=== PATIENT | female | born 1940 | race Two or more races ===

== ENCOUNTER 2017-04-07 01:00 | Inpatient (IN) | payer MEDICARE, OTHER ==
[~2017-04-07] VITALS: Ht 157.5 cm; Wt 61.2 kg
--- NOTE | 2017-04-07 01:10 | NUR ---
ADMITTED AN 77 Y/O FEMALE FROM [facility] EMERGENCY RECORD , ON 5150 HOLD GD, PER HOLD PATIENT IS HIGHLY AGITATED, DELUSIONAL, COMBATIVE, REFUSED FOOD, WATER AND MEDICATION. PATIENT ADMITTING DX. PSYCHOSIS AND MEDICAL DX. OF HYPERTENSION AND UTI. UPON FACE TO FACE EVALUATION, PATIENT IS AGITATED, COMBATIVE, POOR HISTORIAN, CONFUSED, DISORGANIZED, DELUSIONAL, PARANOID, POOR INSIGHT AND JUDGEMENT AND REDIRECTABLE. NO SOB, NO ACUTE DISTRESS, BREATHING EVEN AND UNLABORED, NO S/S OF PAIN AND DISCOMFORT, SKIN TO TOE ASSESSMENT DONE. PICTURES DONE. BELONGINGS AND CONTRABAND INSPECTED AND PLACED ON SAFE. NOTIFIED DR. ADKINS. KEPT CLEAN, DRY AND COMFORTABLE, WILL CONTINUE TO MONITOR [id number] FOR SAFETY
[2017-04-07] MEDS ORDERED: MAGNESIUM HYDROXIDE 30 ML UDC PO PRN (01:30)
[2017-04-07] MEDS ORDERED: clonazePAM 0.5 MG TABLET PO PRN (01:30)
[2017-04-07] MEDS ORDERED: MAG HYDROX/AL HYDROX/SIMETH 30 ML UDC PO PRN (01:30)
[2017-04-07] MEDS ORDERED: ACETAMINOPHEN 325 MG TABLET PO PRN (01:30)
[2017-04-07] MEDS ORDERED: TEMAZEPAM 7.5 MG CAPSULE PO PRN (01:30)
[2017-04-07 03:29] VITALS: BP 123/76
--- NOTE | 2017-04-07 05:00 | NUR ---
GPS RN NOTE: NOTIFIED GUANAKITO ALEJANDRA(DAUGHTER) OF THE ADMISSION OF HER MOTHER
[2017-04-07] MEDS ORDERED: BENA10TA2 (05:56)
[2017-04-07] MEDS ORDERED: FLUT1DIS27 (05:56)
[2017-04-07] MEDS ORDERED: ALBU2.5V38 (05:56)
[2017-04-07] MEDS ORDERED: TIOT18CA3 PO (05:56)
[2017-04-07] MEDS ORDERED: NA P133E RC (05:56)
[2017-04-07] MEDS ORDERED: BISA10SU8 RC (05:56)
[2017-04-07] MEDS ORDERED: DOCU-25 PO (05:56)
[2017-04-07] MEDS ORDERED: MULT1CAP34 PO (05:56)
[2017-04-07] MEDS ORDERED: FURO40TA5 PO (05:56)
[2017-04-07] MEDS ORDERED: TRAZ-147 PO (05:56)
[2017-04-07] MEDS ORDERED: HALO2ORA IJ (05:56)
[2017-04-07] MEDS ORDERED: DIVA500T54 (05:56)
[2017-04-07] MEDS ORDERED: LOPE2CAP40 PO (05:56)
[2017-04-07] MEDS ORDERED: CARV6.252 (05:56)
[2017-04-07] MEDS ORDERED: ATOR20TA PO (05:56)
[2017-04-07] MEDS ORDERED: FLUT9.9S NS (05:56)
[2017-04-07] MEDS ORDERED: POTA-10 PO (05:56)
[2017-04-07] MEDS ORDERED: CALC500T3 PO (05:57)
[2017-04-07] MEDS ORDERED: CALC1POW MC (05:57)
[2017-04-07] MEDS ORDERED: CALC-1152 PO (05:59)
[2017-04-07] MEDS ORDERED: CEPH-570 PO (06:10)
[2017-04-07 08:00] VITALS: BP 134/76
--- NOTE | 2017-04-07 09:22 | NUR ---
WOUND CARE CONSULT: PT PRESENTS WITH LESION TO MIDBACK PRESENT ON ADMISSION. RECOMMEND SURGICAL CONSULT. AREA BLEEDS EASILY. RECOMMENDATIONS MADE FOR SKIN PROTECTION. DISCUSSED WITH NURSING STAFF. WILL SEE PRN. NEWELL IN AGREEMENT WITH PLAN OF CARE. Addendum: 04/07/17 at 0924 by GUANAKITO BENNETT WNDNU Amended: Links added.
[2017-04-07] MEDS ORDERED: Z GUARD REMEDY 2 OZ OINT TP PRN (09:30)
[2017-04-07] MEDS: Z GUARD REMEDY 2 OZ OINT TP SCH (09:52)
[2017-04-07 12:13] LABS: CHOLESTEROL 176 mg/dL (<200); HDL CHOLESTEROL 40 mg/dL (40-60); LDL 114 mg/dL (0-99); TRIGLYCERIDES 105 mg/dL (30-150)
[2017-04-07 12:14] LABS: ALANINE AMINOTRANSFERASE 19 U/L (12-78); ALBUMIN 3.1 g/dL (3.4-5.0); ALKALINE PHOSPHATASE 83 U/L (46-116); ASPARTATE AMINOTRANSFERASE 20 U/L (15-37); BILIRUBIN,TOTAL 0.6 mg/dL (0.2-1.0); CARBON DIOXIDE 26 mmol/L (21-32); CHLORIDE 109 mmol/L (98-107); CREATININE 0.6 mg/dL (0.6-1.3); GLUCOSE 100 mg/dL (74-106); POTASSIUM 3.6 mmol/L (3.5-5.1); SODIUM SERUM 144 mmol/L (136-145); TOTAL PROTEIN, SERUM 6.8 g/dL (6.4-8.2); UREA NITROGEN, BLOOD 16 mg/dL (7-18)
--- NOTE | 2017-04-07 12:25 | NUR ---
RN NOTE :RAMIREZ CREW LEADER/CONTROL ROOM OPERATOR NOTIFIED ABOUT NEW ADMIT AND MED RECONCILIATION .
--- NOTE | 2017-04-07 12:25 | NUR ---
RN-CO: Notified Yonny Amezcua NP to reconcile home medications.
[2017-04-07 16:00] VITALS: BP 141/90
--- NOTE | 2017-04-07 16:14 | NUR ---
initial assessment/discharge planning: Pt resided at [facility] at [address] [place] [address] . home support worker contacted facility,facility is awaiting progress report. Facility is noncommittal at this time, pt may need placement.
[2017-04-07] MEDS: DIVALPROEX SODIUM 125 MG CAP.SPRINK PO SCH ×2 (17:00→17:29)
--- NOTE | 2017-04-07 17:00 | NUR ---
RN NOTE :PATIENT SEEN BY RAMIREZ AND STATED HE WILL DO MED RECONCILIATION.
--- NOTE | 2017-04-07 19:30 | NUR ---
GPS RN NOTE, RECEIVED PATIENT AWAKE AND IN GERIATRIC CHAIR WITH NO TRAY , NO S/S OR COMPLAINTS OF PAIN AT THIS TIME. PATIENT IS DISPLAYING NO S/S OF APPARENT DISTRESS AT THIS TIME. PATIENT BREATHING IS UNLABORED WITH EQUAL RISE AND FALL OF THE CHEST. PATIENT IS ALERT AND ORIENTED X 1 ON ROOM AIR WITH A SPO2 98%. PATIENT REFUSING MEDICATION, ANXIOUS, CONFUSED, DISORGANIZED, COMBATIVE AT TIMES, VERBALLY ABUSIVE, AND NEEDS REORIENTATION. PATIENT DENIES SUICIDE AND HOMICIDAL IDEATIONS AT THIS TIME. PATIENT ASSISTED WITH TURNING AND REPOSITIONING Q2HR AND PRN FOR COMFORT AND CIRCULATION. PATIENT HAS NO NEEDS AT THIS TIME. PATIENT EDUCATED ON THE USE OF THE CALL FOLEY. PATIENT BED SIDE RAILS UP X2 FOR SAFETY, BED IS LOCKED AND LOW WILL CONTINUE TO MONITOR AND MAINTAIN SAFETY.
[2017-04-07] MEDS ORDERED: CALCIUM CARBONATE 500 MG TAB.CHEW PO PRN (20:00)
[2017-04-07] MEDS ORDERED: BISACODYL SUPP (10 MG) 10 MG/SUPP.RECT SUPP.RECT RC PRN (20:00)
[2017-04-07] MEDS ORDERED: ALBUTEROL FS 2.5 MG/3 ML VIAL.NEB INH PRN (20:00)
[2017-04-07] MEDS ORDERED: CALCIUM CARBONATE (1250) 500 MG TABLET PO PRN (20:00)
[2017-04-07] MEDS: ATORVASTATIN 10 MG TABLET PO SCH (22:00)
[2017-04-07] MEDS: OLANZAPINE 5 MG/TAB.RAPDIS PO SCH (22:00)
--- NOTE | 2017-04-07 22:16 | NUR ---
GPS RN NOTE, PATIENT REFUSED TO TAKE LIPITOR 20MG PO HS AND ZYPREXA 5MG PO HS. OFFERED LIPITOR AND ZYPREXA THREE TIMES AND STILL REFUSED STATING, " I WOULD NOT TAKE A PILL FROM YOU IF YOU WERE THE LAST PERSON ON EARTH ". EDUCATED THE PATIENT ON THE RISKS AND BENEFITS OF TAKING AND REFUSING AFOREMENTIONED MEDICATION. WILL CONTINUE TO MONITOR THIS PATIENT CLOSELY.
[2017-04-08] MEDS ORDERED: IPRATROPIUM NEB FS 0.5 MG/2.5 ML AMPUL.NEB NEB SCH (01:30)
[2017-04-08] MEDS ORDERED: IPRATROPIUM NEB FS 0.5 MG/2.5 ML AMPUL.NEB NEB PRN (03:00)
[2017-04-08 08:00] VITALS: BP 135/70
[2017-04-08] MEDS: CALCIUM CARB 600MG /VIT D 1 EACH TABLET PO SCH (09:00)
[2017-04-08] MEDS: POTASSIUM CHLORIDE 10 MEQ TABLET.SA PO SCH (09:00)
[2017-04-08] MEDS: DIVALPROEX SODIUM 125 MG CAP.SPRINK PO SCH ×2 (09:00→21:00)
[2017-04-08] MEDS: FLUTICASONE/VILANTEROL 1 EACH BLST.W.DEV IH SCH (09:00)
[2017-04-08] MEDS: MULTIVITAMINS,THERAGRAN 1 UDTAB TABLET PO SCH (09:00)
[2017-04-08] MEDS: CARVEDILOL 6.25 MG TABLET PO SCH ×2 (09:00→17:00)
[2017-04-08] MEDS: DOCUSATE SODIUM 100 MG CAPSULE PO SCH (09:00)
[2017-04-08] MEDS: FUROSEMIDE 40 MG TABLET PO SCH (09:00)
[2017-04-08] MEDS ORDERED: DIVALPROEX SODIUM 500 MG TABLET.DR PO SCH (09:00)
[2017-04-08] MEDS: BENAZEPRIL HCL 10 MG TABLET PO SCH ×2 (09:00→17:00)
[2017-04-08] MEDS: Z GUARD REMEDY 2 OZ OINT TP SCH (10:07)
[2017-04-08 16:00] VITALS: BP 128/70
[2017-04-08 20:00] VITALS: BP 134/85
--- NOTE | 2017-04-08 21:35 | NUR ---
PATIENT REFUSED TO TAKE SCHEDULED MEDS. OFFERED 3X. PT STILL REFUSED. EDUCATED THE PATIENT ON THE RISKS AND BENEFITS OF NOT TAKING IT. WILL CONTINUE TO MONITOR.
[2017-04-08] MEDS: ATORVASTATIN 10 MG TABLET PO SCH (21:47)
[2017-04-08] MEDS: OLANZAPINE 5 MG/TAB.RAPDIS PO SCH (21:48)
--- NOTE | 2017-04-09 07:30 | NUR ---
GPS RN: RECEIVED PATIENT IN BED SLEEPING, NO S/S OF ACUTE DISTRESS, RESPIRATION EVEN AND UNLABORED, SKIN WARM TO TOUCH. PATIENT NOTED WITH LEFT JAIME SKIN TEAR. CLEANSED WITH NS CLEAN DRESSING APPLIED. WILL TAKE A PICTURE AND ORDER WOUND CONSULT.
[2017-04-09 08:00] VITALS: BP 156/90
[2017-04-09] MEDS: BENAZEPRIL HCL 10 MG TABLET PO SCH ×2 (11:07→16:38)
[2017-04-09] MEDS: DIVALPROEX SODIUM 125 MG CAP.SPRINK PO SCH ×2 (11:07→21:30)
[2017-04-09] MEDS: POTASSIUM CHLORIDE 10 MEQ TABLET.SA PO SCH (11:08)
[2017-04-09] MEDS: FUROSEMIDE 40 MG TABLET PO SCH (11:08)
[2017-04-09] MEDS: CARVEDILOL 6.25 MG TABLET PO SCH ×2 (11:08→16:38)
[2017-04-09] MEDS: CALCIUM CARB 600MG /VIT D 1 EACH TABLET PO SCH (11:13)
[2017-04-09] MEDS: MULTIVITAMINS,THERAGRAN 1 UDTAB TABLET PO SCH (11:13)
[2017-04-09] MEDS: DOCUSATE SODIUM 100 MG CAPSULE PO SCH (11:13)
[2017-04-09] MEDS: FLUTICASONE/VILANTEROL 1 EACH BLST.W.DEV IH SCH (11:22)
[2017-04-09] MEDS: Z GUARD REMEDY 2 OZ OINT TP SCH (11:23)
--- NOTE | 2017-04-09 11:38 | NUR ---
GPS RN: PATIENT IS SEEN BY THE INSIDE SALES ADVERTISING EXECUTIVE, DR. DE LOS SANTOS WITH NEW ORDER, CLEAN THE LEFT JAIME WITH NS, PAT DRY, APPLY TRIPLE ATB OINTMENT AND COVER WITH MEPILEX DAILY. PICTURES TAKEN AND DOCUMENTED IN THE CHART.
[2017-04-09] MEDS: NEOMY SULF/BACITRAC ZN/POLY 15 GM TUBE TP SCH (15:11)
[2017-04-09 16:00] VITALS: BP 128/74
[2017-04-09] MEDS ORDERED: BOOST PLUS FOOD-VANILLA 237 ML BOX PO SCH (17:00)
[2017-04-09] MEDS ORDERED: OLANZAPINE 2.5 MG TABLET PO PRN (18:00)
--- NOTE | 2017-04-09 18:30 | NUR ---
RN-CO: Patient is disrobing, showing her private part to staff. keep on removing her gown and non redirectable. Saying profanities and verbally abusive.
[2017-04-09] MEDS: BOOST PLUS FOOD-CHOCLATE 237 ML BOX PO SCH (18:42)
[2017-04-09 20:00] VITALS: BP_SYST 120; BP_SYST 142; BP_DIAS 58; BP_DIAS 75
[2017-04-09] MEDS: ATORVASTATIN 10 MG TABLET PO SCH (21:28)
[2017-04-09] MEDS: OLANZAPINE 5 MG/TAB.RAPDIS PO SCH (21:30)
--- NOTE | 2017-04-10 07:18 | NUR ---
RN GPS NOTES PATIENT RESTING HER BED, NO ACUTE DISTRESS NOTED ,NO CHANGES IN STATUS. ALL NEEDS ATTENDED ANTICIPATED . REMANIED , PT. COMPLY WITH DUE MEDS , PT.CHIN AND RIGHT HAND AND RIGHT ARM BRUSIES NOTED PICTURE TAKEN , PLACED IN THE CHART ,WILL ENDORSE TO NEXT SHIFT FOR CONTINUITY CARE
[2017-04-10 08:00] VITALS: BP 134/78
[2017-04-10] MEDS: BOOST PLUS FOOD-CHOCLATE 237 ML BOX PO SCH ×2 (08:00→17:00)
[2017-04-10] MEDS: FLUTICASONE/VILANTEROL 1 EACH BLST.W.DEV IH SCH (09:00)
[2017-04-10] MEDS: DIVALPROEX SODIUM 125 MG CAP.SPRINK PO SCH ×2 (09:00→21:00)
[2017-04-10] MEDS: POTASSIUM CHLORIDE 10 MEQ TABLET.SA PO SCH (09:00)
[2017-04-10] MEDS: CALCIUM CARB 600MG /VIT D 1 EACH TABLET PO SCH (09:00)
[2017-04-10] MEDS: CARVEDILOL 6.25 MG TABLET PO SCH ×2 (09:00→17:00)
[2017-04-10] MEDS: FUROSEMIDE 40 MG TABLET PO SCH (09:00)
[2017-04-10] MEDS: MULTIVITAMINS,THERAGRAN 1 UDTAB TABLET PO SCH (09:00)
[2017-04-10] MEDS: BENAZEPRIL HCL 10 MG TABLET PO SCH ×2 (09:00→17:00)
[2017-04-10] MEDS: DOCUSATE SODIUM 100 MG CAPSULE PO SCH (09:00)
[2017-04-10] MEDS: NEOMY SULF/BACITRAC ZN/POLY 15 GM TUBE TP SCH (10:43)
[2017-04-10] MEDS: Z GUARD REMEDY 2 OZ OINT TP SCH (10:43)
--- NOTE | 2017-04-10 11:00 | NUR ---
GPS RN: PATIENT IS AGGRESSIVE, COMBATIVE, REFUSING MEDICATION AND SPITTING AT STAFF MEMBERS, THROWING PILLOWS, AND DISROBING. REDIRECTED THE PATIENT AND PROVIDED WITH CALM AND SAFE ENVIRONMENT. PATIENT'S VS ARE STABLE AT THIS TIME, NO S/S OF ACUTE DISTRESS. CONTINUE TO MONITOR.
[2017-04-10 15:53] VITALS: BP 138/74
--- NOTE | 2017-04-10 17:09 | NUR ---
GPS RN: PATIENT REFUSED 1700 MEDICATIONS. VERBALLY ABUSIVE AND SPITTING AT STAFF. PATIENT IS LYING IN BED, NO SS OF ACUTE DISTRESS, VS STABLE, CONTINUE TO MONITOR THE PATIENT.
--- NOTE | 2017-04-10 18:52 | NUR ---
GPS RN: PATIENT DISPLAYS AGGRESSIVE BEHAVIOR, HITTING AND SPITTING AT STAFF WHEN OFFERED FOOD OR FLUIDS. SHE IS VERY CONFUSED AND DELUSIONAL, UNABLE TO REDIRECT. VS STABLE, NO S/S OF ACUTE DISTRESS, CONTINUE TO MONITOR THE PATIENT.
[2017-04-10 20:00] VITALS: BP 165/87
[2017-04-10] MEDS: ATORVASTATIN 10 MG TABLET PO SCH (21:32)
[2017-04-10] MEDS: OLANZAPINE 5 MG/TAB.RAPDIS PO SCH (21:32)
--- NOTE | 2017-04-11 01:25 | NUR ---
Pt has been verbally abusive, refusing meds, quite fragmented at times, disheveled, aggressive mostly, & very easily agitated on approach.
[2017-04-11] MEDS: BOOST PLUS FOOD-CHOCLATE 237 ML BOX PO SCH ×2 (08:00→17:00)
[2017-04-11 08:19] VITALS: BP 148/64
[2017-04-11] MEDS: CALCIUM CARB 600MG /VIT D 1 EACH TABLET PO SCH (09:00)
[2017-04-11] MEDS: OLANZAPINE 5 MG/TAB.RAPDIS PO SCH ×2 (09:00→21:42)
[2017-04-11] MEDS: NEOMY SULF/BACITRAC ZN/POLY 15 GM TUBE TP SCH (09:00)
[2017-04-11] MEDS: FLUTICASONE/VILANTEROL 1 EACH BLST.W.DEV IH SCH (09:00)
[2017-04-11] MEDS: POTASSIUM CHLORIDE 10 MEQ TABLET.SA PO SCH (09:00)
[2017-04-11] MEDS: CARVEDILOL 6.25 MG TABLET PO SCH ×2 (09:00→17:00)
[2017-04-11] MEDS: FUROSEMIDE 40 MG TABLET PO SCH (09:00)
[2017-04-11] MEDS: MULTIVITAMINS,THERAGRAN 1 UDTAB TABLET PO SCH (09:00)
[2017-04-11] MEDS: BENAZEPRIL HCL 10 MG TABLET PO SCH ×2 (09:00→17:00)
[2017-04-11] MEDS: DOCUSATE SODIUM 100 MG CAPSULE PO SCH (09:00)
[2017-04-11] MEDS: DIVALPROEX SODIUM 125 MG CAP.SPRINK PO SCH ×2 (09:00→21:00)
[2017-04-11] MEDS: Z GUARD REMEDY 2 OZ OINT TP SCH (09:17)
--- NOTE | 2017-04-11 13:51 | NUR ---
PT. REFUSING FOR CT HEAD PER RN (AMOS).
[2017-04-11 16:00] VITALS: BP 151/86
--- NOTE | 2017-04-11 18:17 | NUR ---
GPS RN NOTES/ PATIENT DELUSIONAL, REFUSED MEDICATION, POOR EAT, OFFERED FLUIDS TOLERATED, PATIENT TURN AND REPOSITION SELF IN THE BED, 1;1 SITTER NEXT TO THE BED FOR SAFETY. ENDORSED ONCOMING NURSE FOR CONTINUATION OF CARE.
[2017-04-11 19:43] VITALS: BP 159/75
[2017-04-11] MEDS: ATORVASTATIN 10 MG TABLET PO SCH (21:42)
[2017-04-12 08:00] VITALS: BP 161/87
[2017-04-12] MEDS: BOOST PLUS FOOD-CHOCLATE 237 ML BOX PO SCH ×2 (08:00→16:54)
[2017-04-12] MEDS: DOCUSATE SODIUM 100 MG CAPSULE PO SCH (08:48)
[2017-04-12] MEDS: CARVEDILOL 6.25 MG TABLET PO SCH ×2 (08:48→16:54)
[2017-04-12] MEDS: CALCIUM CARB 600MG /VIT D 1 EACH TABLET PO SCH (08:48)
[2017-04-12] MEDS: FLUTICASONE/VILANTEROL 1 EACH BLST.W.DEV IH SCH (08:48)
[2017-04-12] MEDS: FUROSEMIDE 40 MG TABLET PO SCH (08:49)
[2017-04-12] MEDS: DIVALPROEX SODIUM 125 MG CAP.SPRINK PO SCH ×2 (08:49→21:44)
[2017-04-12] MEDS: POTASSIUM CHLORIDE 10 MEQ TABLET.SA PO SCH (08:49)
[2017-04-12] MEDS: MULTIVITAMINS,THERAGRAN 1 UDTAB TABLET PO SCH (08:50)
[2017-04-12] MEDS: OLANZAPINE 5 MG/TAB.RAPDIS PO SCH ×2 (08:50→21:44)
[2017-04-12] MEDS: BENAZEPRIL HCL 10 MG TABLET PO SCH ×2 (08:50→16:59)
[2017-04-12] MEDS: NEOMY SULF/BACITRAC ZN/POLY 15 GM TUBE TP SCH (08:50)
[2017-04-12] MEDS: Z GUARD REMEDY 2 OZ OINT TP SCH (08:51)
--- NOTE | 2017-04-12 11:35 | NUR ---
EVITA spoke with pt's daughter Lou at [phone]. Lou was aware that her mother was not compliant with medication and that a Riese hearing will be scheduled. Lou expressed that the family would like for pt to return to [address] [address] if possible once pt is stable. Lou stated that if it was not possible for pt to return to [facility], then placement in the [facility] with hospice care would be preferable. EVITA will follow up with MDs and will touch base with Lou when possible.
[2017-04-12 16:00] VITALS: BP 153/87
[2017-04-12 17:34] VITALS: BP 135/80
[2017-04-12 20:27] VITALS: BP 113/66
[2017-04-12] MEDS: ATORVASTATIN 10 MG TABLET PO SCH (21:44)
[2017-04-13 08:00] VITALS: BP 121/81
[2017-04-13] MEDS: BOOST PLUS FOOD-CHOCLATE 237 ML BOX PO SCH ×2 (08:00→16:28)
[2017-04-13] MEDS: CALCIUM CARB 600MG /VIT D 1 EACH TABLET PO SCH (08:45)
[2017-04-13] MEDS: DOCUSATE SODIUM 100 MG CAPSULE PO SCH (08:45)
[2017-04-13] MEDS: CARVEDILOL 6.25 MG TABLET PO SCH ×2 (08:45→16:28)
[2017-04-13] MEDS: BENAZEPRIL HCL 10 MG TABLET PO SCH ×2 (08:46→16:29)
[2017-04-13] MEDS: FUROSEMIDE 40 MG TABLET PO SCH (08:46)
[2017-04-13] MEDS: POTASSIUM CHLORIDE 10 MEQ TABLET.SA PO SCH (08:46)
[2017-04-13] MEDS: MULTIVITAMINS,THERAGRAN 1 UDTAB TABLET PO SCH (08:47)
[2017-04-13] MEDS: OLANZAPINE 5 MG/TAB.RAPDIS PO SCH ×3 (08:47→22:00)
[2017-04-13] MEDS: NEOMY SULF/BACITRAC ZN/POLY 15 GM TUBE TP SCH (08:48)
[2017-04-13] MEDS: DIVALPROEX SODIUM 125 MG CAP.SPRINK PO SCH ×3 (08:48→21:19)
[2017-04-13] MEDS: Z GUARD REMEDY 2 OZ OINT TP SCH (08:48)
--- NOTE | 2017-04-13 08:49 | NUR ---
[id number]: PT REFUSED ALL MORNING MEDICATIONS. WILL NOTIFY PSYCHIATRIST AND MEDICAL WATER RIGHTS SPECIALIST.
[2017-04-13] MEDS: FLUTICASONE/VILANTEROL 1 EACH BLST.W.DEV IH SCH (09:00)
--- NOTE | 2017-04-13 12:27 | NUR ---
EVITA called [facility] [address] [place] [address]; and spoke with Inan who took a message for Blanca in admissions. EVITA was following up and inquiring if the facility would be able to take pt back once pt is stabilized and ready for discharge. EVITA will wait to hear back from Blanca and will follow up with placement for pt.
--- NOTE | 2017-04-13 15:34 | NUR ---
Blanca from Admissions from [facility]; [address] [place] [address]; called and stated that, legally, the facility has to accept pt back. Blanca expressed concern that the pt might need more care than the facility can provide. Blanca said that if a doctor decides to send the pt to another facility, then the doctor can issue a note stating that another facility is better suited. EVITA will follow up with psychiatrist.
[2017-04-13 16:03] VITALS: BP 133/84
[2017-04-13 20:31] VITALS: BP 148/74
[2017-04-13] MEDS: ATORVASTATIN 10 MG TABLET PO SCH ×2 (21:19→22:00)
--- NOTE | 2017-04-13 21:27 | NUR ---
GPS/RN NOTE: PATIENT REFUSED HER NIGHT MEDS, CONFUSED, NOT FOLLOWING INSTRUCTIONS. STATED," GO TO THE [facility]." EXPLAINED 3X BUT NOT UNDERSTANDING.
[2017-04-14] MEDS: BOOST PLUS FOOD-CHOCLATE 237 ML BOX PO SCH ×2 (08:00→17:00)
[2017-04-14 08:15] VITALS: BP 145/79
[2017-04-14] MEDS: DIVALPROEX SODIUM 125 MG CAP.SPRINK PO SCH ×2 (09:00→21:00)
[2017-04-14] MEDS: POTASSIUM CHLORIDE 10 MEQ TABLET.SA PO SCH (09:00)
[2017-04-14] MEDS: NEOMY SULF/BACITRAC ZN/POLY 15 GM TUBE TP SCH (09:00)
[2017-04-14] MEDS: CALCIUM CARB 600MG /VIT D 1 EACH TABLET PO SCH (09:00)
[2017-04-14] MEDS: CARVEDILOL 6.25 MG TABLET PO SCH ×2 (09:00→17:00)
[2017-04-14] MEDS: FLUTICASONE/VILANTEROL 1 EACH BLST.W.DEV IH SCH (09:00)
[2017-04-14] MEDS: MULTIVITAMINS,THERAGRAN 1 UDTAB TABLET PO SCH (09:00)
[2017-04-14] MEDS: FUROSEMIDE 40 MG TABLET PO SCH (09:00)
[2017-04-14] MEDS: DOCUSATE SODIUM 100 MG CAPSULE PO SCH (09:00)
[2017-04-14] MEDS: BENAZEPRIL HCL 10 MG TABLET PO SCH ×2 (09:00→17:00)
[2017-04-14] MEDS: Z GUARD REMEDY 2 OZ OINT TP SCH (09:00)
[2017-04-14] MEDS: OLANZAPINE 5 MG/TAB.RAPDIS PO SCH ×2 (09:00→21:04)
--- NOTE | 2017-04-14 10:00 | NUR ---
RN-CO: CASSY ANGULO SEC. INFORMED COURT THAT DR HEDRICK AVAILABLE BET 10:30 AM - 11:00 FOR THE PT'S RIESED HEARING.
--- NOTE | 2017-04-14 11:44 | NUR ---
Group Note S: Pt stated "I don't have any questions...I want to stand here..." O: Pt appeared to be withdrawn. Pt's motor activity was calm. Pt appeared timid. A: Pt seems to have made progress in regards to controlling her impulsive and volatile behavior. P: SW will follow up with pt's progress and will continue to work on safe and proper discharge. Addendum: 04/26/17 at 1049 by GRADY JAMA This was patient Dae Sewell, not Elizabeth Dae.
--- NOTE | 2017-04-14 14:56 | NUR ---
PT REFUSING THE CT BRAIN. RN IN CHARGE KNOWS ABOUT IT. TRY IT TOMORROW.
[2017-04-14 16:15] VITALS: BP 147/85
[2017-04-14 20:00] VITALS: BP 128/73
[2017-04-14 20:16] VITALS: BP 128/73
[2017-04-14] MEDS: ATORVASTATIN 10 MG TABLET PO SCH (21:04)
--- NOTE | 2017-04-14 21:06 | NUR ---
GPS/MARKET RESEARCH ASSISTANT NOTES: PT. REFUSED ALL HS MEDS. OFFERED 3X. EXPLAINED RISK AND BENEFITS. PT. STILL REFUSED.
[2017-04-15 08:00] VITALS: BP 130/75
[2017-04-15] MEDS: BOOST PLUS FOOD-CHOCLATE 237 ML BOX PO SCH ×2 (08:00→16:43)
[2017-04-15] MEDS: NEOMY SULF/BACITRAC ZN/POLY 15 GM TUBE TP SCH (09:00)
[2017-04-15] MEDS: CALCIUM CARB 600MG /VIT D 1 EACH TABLET PO SCH (09:00)
[2017-04-15] MEDS: MULTIVITAMINS,THERAGRAN 1 UDTAB TABLET PO SCH (09:00)
[2017-04-15] MEDS: Z GUARD REMEDY 2 OZ OINT TP SCH (09:00)
[2017-04-15] MEDS: BENAZEPRIL HCL 10 MG TABLET PO SCH ×2 (09:00→16:47)
[2017-04-15] MEDS: FUROSEMIDE 40 MG TABLET PO SCH (09:00)
[2017-04-15] MEDS: CARVEDILOL 6.25 MG TABLET PO SCH ×2 (09:00→16:46)
[2017-04-15] MEDS: POTASSIUM CHLORIDE 10 MEQ TABLET.SA PO SCH (09:00)
[2017-04-15] MEDS: OLANZAPINE 5 MG/TAB.RAPDIS PO SCH ×2 (09:00→21:00)
[2017-04-15] MEDS: FLUTICASONE/VILANTEROL 1 EACH BLST.W.DEV IH SCH (09:00)
[2017-04-15] MEDS: DOCUSATE SODIUM 100 MG CAPSULE PO SCH (09:00)
[2017-04-15] MEDS: DIVALPROEX SODIUM 125 MG CAP.SPRINK PO SCH ×2 (09:00→21:00)
[2017-04-15] MEDS: OLANZAPINE 10 MG VIAL IM PRN ×2 (14:13→21:45)
[2017-04-15 16:00] VITALS: BP 120/78
--- NOTE | 2017-04-15 18:33 | NUR ---
RN NOTES PT STILL AGITATED AND COMBATIVE , ONLY LIKES HER BOOST TO DRINK , REFUSED 1700 MEDS, REORIENTED TO ROOM AND ENVIRONMENT , WILL ENDORSE TO PLASTIC SHEETING CUTTER NURSE FOR SANTIAGO .
[2017-04-15 20:00] VITALS: BP 140/80
[2017-04-15 20:01] VITALS: BP 140/80
[2017-04-15] MEDS: ATORVASTATIN 10 MG TABLET PO SCH (21:42)
--- NOTE | 2017-04-15 21:56 | NUR ---
gps/senior estimator notes: pt. refused all hs meds including olanzapine 2.5mg po as ordered. offered 3x. explained risk and benefits. pt. still refused. pt. on RIESE, olanzapine 2.5mg IM given as ordered per olanzapine 2.5mg po refusal.
[2017-04-16 08:30] VITALS: BP 151/74
[2017-04-16] MEDS: BOOST PLUS FOOD-CHOCLATE 237 ML BOX PO SCH ×2 (08:30→17:27)
[2017-04-16] MEDS: FUROSEMIDE 40 MG TABLET PO SCH (09:00)
[2017-04-16] MEDS: FLUTICASONE/VILANTEROL 1 EACH BLST.W.DEV IH SCH (09:00)
[2017-04-16] MEDS: NEOMY SULF/BACITRAC ZN/POLY 15 GM TUBE TP SCH (09:00)
[2017-04-16] MEDS: CARVEDILOL 6.25 MG TABLET PO SCH ×2 (09:00→17:00)
[2017-04-16] MEDS: DIVALPROEX SODIUM 125 MG CAP.SPRINK PO SCH ×2 (09:00→21:00)
[2017-04-16] MEDS: CALCIUM CARB 600MG /VIT D 1 EACH TABLET PO SCH (09:00)
[2017-04-16] MEDS: POTASSIUM CHLORIDE 10 MEQ TABLET.SA PO SCH (09:00)
[2017-04-16] MEDS: BENAZEPRIL HCL 10 MG TABLET PO SCH ×2 (09:00→17:00)
[2017-04-16] MEDS: OLANZAPINE 5 MG/TAB.RAPDIS PO SCH ×2 (09:00→17:00)
[2017-04-16] MEDS: MULTIVITAMINS,THERAGRAN 1 UDTAB TABLET PO SCH (09:00)
[2017-04-16] MEDS: DOCUSATE SODIUM 100 MG CAPSULE PO SCH (09:00)
[2017-04-16] MEDS: Z GUARD REMEDY 2 OZ OINT TP SCH (09:06)
[2017-04-16] MEDS: OLANZAPINE 10 MG VIAL IM PRN ×2 (11:22→17:59)
--- NOTE | 2017-04-16 11:24 | NUR ---
EARLY BREASTFEEDING CARE SPECIALIST-NOTES PATIENT STRONGLY REFUSED ALL 0900AM MEDICATIONS EXCEPT BOOST SUPPLEMENT. PATIENT STATED" I DON'T' HAVE TO TAKE MEDICATIONS'. EXPLAINED RISK AND BENEFITS BUT PATIENT GETS ANGRY SCREAM AT THE DYNAMOMETER MECHANIC USING FOUL LANGUAGES. ZYPREXA 2.5MG IM GIVEN ORDERED. GIVEN TO THE LEFT BUTTOCKS. PATIENT TOLERATED WELL. WILL CONT. MONITORING Q15 MINS. FOR SAFETY AND BEHAVIOR.
[2017-04-16 16:00] VITALS: BP 130/87
--- NOTE | 2017-04-16 18:07 | NUR ---
SALES CONTRACT ADMINISTRATOR-NOTES PATIENT STRONGLY REFUSED ALL 1700 PM MEDICATIONS EXCEPT BOOST SUPPLEMENT. ZYPREXA 2.5MG IM GIVEN ORDERED. GIVEN TO THE RIGHT BUTTOCKS. PATIENT TOLERATED WELL. WILL CONT. MONITORING Q15 MINS. FOR SAFETY AND BEHAVIOR.
[2017-04-16 20:00] VITALS: BP 123/56
[2017-04-16] MEDS: ATORVASTATIN 10 MG TABLET PO SCH (21:49)
[2017-04-17 08:00] VITALS: BP 130/77
[2017-04-17] MEDS: BOOST PLUS FOOD-CHOCLATE 237 ML BOX PO SCH ×2 (08:00→17:38)
[2017-04-17] MEDS: OLANZAPINE 5 MG/TAB.RAPDIS PO SCH ×4 (09:00→17:35)
[2017-04-17] MEDS: CALCIUM CARB 600MG /VIT D 1 EACH TABLET PO SCH (09:00)
[2017-04-17] MEDS: BENAZEPRIL HCL 10 MG TABLET PO SCH ×2 (09:00→17:00)
[2017-04-17] MEDS: DOCUSATE SODIUM 100 MG CAPSULE PO SCH (09:00)
[2017-04-17] MEDS: CARVEDILOL 6.25 MG TABLET PO SCH ×2 (09:00→17:00)
[2017-04-17] MEDS: FUROSEMIDE 40 MG TABLET PO SCH (09:00)
[2017-04-17] MEDS: MULTIVITAMINS,THERAGRAN 1 UDTAB TABLET PO SCH (09:00)
[2017-04-17] MEDS: POTASSIUM CHLORIDE 10 MEQ TABLET.SA PO SCH (09:00)
[2017-04-17] MEDS: FLUTICASONE/VILANTEROL 1 EACH BLST.W.DEV IH SCH (09:00)
[2017-04-17] MEDS: DIVALPROEX SODIUM 125 MG CAP.SPRINK PO SCH ×2 (09:00→21:37)
[2017-04-17] MEDS: NEOMY SULF/BACITRAC ZN/POLY 15 GM TUBE TP SCH (09:48)
[2017-04-17] MEDS: Z GUARD REMEDY 2 OZ OINT TP SCH (09:48)
[2017-04-17] MEDS: OLANZAPINE 10 MG VIAL IM PRN ×4 (10:45→19:18)
[2017-04-17 16:12] VITALS: BP 127/70
[2017-04-17 20:00] VITALS: BP 103/73
[2017-04-17] MEDS: ATORVASTATIN 10 MG TABLET PO SCH (21:37)
--- NOTE | 2017-04-18 00:27 | NUR ---
Pt remains verbally abusive, quite fragmented at times, disheveled, aggressive mostly, resisting care, & very easily agitated on approach.
[2017-04-18 08:00] VITALS: BP 140/81
[2017-04-18] MEDS: DOCUSATE SODIUM 100 MG CAPSULE PO SCH (09:00)
[2017-04-18] MEDS: OLANZAPINE 5 MG/TAB.RAPDIS PO SCH ×4 (09:00→17:00)
[2017-04-18] MEDS: CARVEDILOL 6.25 MG TABLET PO SCH ×3 (09:00→16:59)
[2017-04-18] MEDS: POTASSIUM CHLORIDE 10 MEQ TABLET.SA PO SCH ×2 (09:00→10:23)
[2017-04-18] MEDS: FLUTICASONE/VILANTEROL 1 EACH BLST.W.DEV IH SCH (09:00)
[2017-04-18] MEDS: BENAZEPRIL HCL 10 MG TABLET PO SCH ×3 (09:00→17:00)
[2017-04-18] MEDS: DIVALPROEX SODIUM 125 MG CAP.SPRINK PO SCH ×3 (09:00→21:00)
[2017-04-18] MEDS: FUROSEMIDE 40 MG TABLET PO SCH ×2 (09:00→10:24)
[2017-04-18] MEDS: CALCIUM CARB 600MG /VIT D 1 EACH TABLET PO SCH ×2 (09:00→10:24)
[2017-04-18] MEDS: MULTIVITAMINS,THERAGRAN 1 UDTAB TABLET PO SCH ×2 (09:00→10:23)
--- NOTE | 2017-04-18 10:00 | NUR ---
GPS RN NOTES PATIENT A/O X1/2, CONFUSED, DELUSIONAL, REFUSED SCHEDULED MEDICATION, AND ZYPREXA ZYDIS 2.5 PO . OFFERED X3, EXPLAINED IMPORTANT OF MEDICATION INTAKE., PATIENT ALSO POOR EATER, ADMINISTERED ZYPREXA 2.5 MG /ML IM LEFT OUTER GLUTEAL AREA, PER REFUSAL ZYPREXA 2.5 PO, CONTINUED MONITORING.
[2017-04-18] MEDS: Z GUARD REMEDY 2 OZ OINT TP SCH (10:25)
[2017-04-18] MEDS: NEOMY SULF/BACITRAC ZN/POLY 15 GM TUBE TP SCH (10:26)
[2017-04-18] MEDS: BOOST PLUS FOOD-CHOCLATE 237 ML BOX PO SCH ×2 (10:30→17:02)
[2017-04-18] MEDS: OLANZAPINE 10 MG VIAL IM PRN ×3 (11:23→17:48)
--- NOTE | 2017-04-18 14:27 | NUR ---
gps rn notes patient refused Zyprexa 2.5 mg po , offered x3 still refused to take. Administered Zyprexa Zydis 2.5 mg/ml im right upper deltoid area , per refusal of po zypexa per md order.
[2017-04-18 16:00] VITALS: BP 110/63
--- NOTE | 2017-04-18 17:48 | NUR ---
GPS RN NOTES PATIENT REFUSED PO ZYPREXA 2.5 MG PO SCHEDULED, OFFERED X3 PATIENT STILL REFUSED, ADMINISTERED ZYPREXA 2.5 MG/ML IM LEFT UPPER DELTOID AREA, CONTINUED MONITORING.
[2017-04-18 20:20] VITALS: BP 140/72
[2017-04-18] MEDS: ATORVASTATIN 10 MG TABLET PO SCH (21:28)
--- NOTE | 2017-04-18 21:29 | NUR ---
RN NOTES - MED REFUSAL PATIENT REFUSING DEPAKOTE 250MG AND LIPITOR 20MG. PATIENT TEACHING REGARDING MEDICATION ADHERENCE PROVIDED, PATIENT STILL STRONGLY REFUSING. CHARGE NURSE KAYLEIGH MADE AWARE. WILL CONTINUE TO CLOSELY MONITOR THE PATIENT Addendum: 04/18/17 at 2134 by MARIO MCCLELLAND RN MEDICATION WASTED IN [facility]
--- NOTE | 2017-04-18 23:55 | NUR ---
RN NOTES - PHOTO REFUSAL UNABLE TO TAKE PICTURES OF WOUND/SKIN CONDITIONS DUE TO PATIENT REFUSAL. ATTEMPTED TO EXPLAIN TO THE PATIENT REGARDING WHY PICTIRES ARE TAKEN BUT PATIENT STRONGLY REFUSING, VERBALLY ABUSIVE. WILL CONTINUE TO CLOSELY MONITOR
[2017-04-19 08:01] VITALS: BP 144/71
[2017-04-19] MEDS: BOOST PLUS FOOD-CHOCLATE 237 ML BOX PO SCH ×2 (08:54→17:46)
[2017-04-19] MEDS: FLUTICASONE/VILANTEROL 1 EACH BLST.W.DEV IH SCH (08:59)
[2017-04-19] MEDS: DIVALPROEX SODIUM 125 MG CAP.SPRINK PO SCH ×2 (09:00→21:00)
[2017-04-19] MEDS: CALCIUM CARB 600MG /VIT D 1 EACH TABLET PO SCH (09:00)
[2017-04-19] MEDS: DOCUSATE SODIUM 100 MG CAPSULE PO SCH (09:00)
[2017-04-19] MEDS: OLANZAPINE 5 MG/TAB.RAPDIS PO SCH ×2 (09:00→13:00)
[2017-04-19] MEDS: CARVEDILOL 6.25 MG TABLET PO SCH ×2 (09:00→17:00)
[2017-04-19] MEDS: POTASSIUM CHLORIDE 10 MEQ TABLET.SA PO SCH (09:00)
[2017-04-19] MEDS: MULTIVITAMINS,THERAGRAN 1 UDTAB TABLET PO SCH (09:00)
[2017-04-19] MEDS: FUROSEMIDE 40 MG TABLET PO SCH (09:00)
[2017-04-19] MEDS: BENAZEPRIL HCL 10 MG TABLET PO SCH ×2 (09:00→17:00)
[2017-04-19] MEDS: Z GUARD REMEDY 2 OZ OINT TP SCH (09:02)
[2017-04-19] MEDS: NEOMY SULF/BACITRAC ZN/POLY 15 GM TUBE TP SCH (09:02)
[2017-04-19] MEDS: OLANZAPINE 10 MG VIAL IM PRN ×2 (09:30→13:09)
--- NOTE | 2017-04-19 09:31 | NUR ---
GPS RN NOTES PATIENT A/O X2, CONFUSED, VERBALLY ABUSIVE, GET IRRITABLE EASILY, PATIENT REFUSED SCHEDULED PO MEDICATION, OFFERED X3 BUT STILL REFUSED, ALSO PATIENT POOR EATER, PATIENT STATE" MY MEDICATION INSIDE OF INSURE, I DO NOT NEED MORE MEDICATION". ADMINISTERED ZYPREXA 2.5 MG/ML IM LEFT UPPER DELTOID AREA PER REFUSAL PO ZYPREXA 2.5 MG PO, CONTINUED MONITORING.
--- NOTE | 2017-04-19 13:10 | NUR ---
GPS RN NOTES/ PATIENT STILL REFUSED 1300 ZYPREXA SCHEDULED 2.5 MG PO, ADMINISTERED ZYPREXA 2.5 MG/ML IM RIGHT UPPER DELTOID AREA PER REFUSAL PO MEDICATION. V/S TAKEN STABLE CU=628/69, P-70, CONTINUED MONITORING.
[2017-04-19 15:48] VITALS: BP 145/74
[2017-04-19] MEDS ORDERED: OLANZAPINE 10 MG VIAL IM PRN (16:30)
[2017-04-19] MEDS: OLANZAPINE 5 MG TABLET PO SCH (17:47)
--- NOTE | 2017-04-19 18:05 | NUR ---
GPS RN NOTES PATIENT REFUSED 1700 ZYPREXA 5 MG PO SCHEDULED, OFFERED X3, STILL REFUSED, ADMINISTERED ZYPREXA 5 MG/ML IM LEFT UPPER GLUTEAL AREA PER REFUSAL PO ZYPREXA, CONTINUED MONITORING.
--- NOTE | 2017-04-19 19:37 | NUR ---
GPS RN NOTES PT IS IN BED A/O X1, CONFUSED. STATING ALL HER MEDS ARE IN HER BOOST AND SHE DOESN'T NEED ANYTHING ELSE. WILL ATTEMPT TO GIVE HER DUE MEDS. NO SIGNS OF SOB OR DISTRESS. BREATHING EVENLY AND UNLABORED. WILL CONTINUE TO MONITOR
[2017-04-19 19:42] VITALS: BP 118/53
[2017-04-19] MEDS: ATORVASTATIN 10 MG TABLET PO SCH (21:23)
[2017-04-20 08:00] VITALS: BP 113/73
[2017-04-20] MEDS: FLUTICASONE/VILANTEROL 1 EACH BLST.W.DEV IH SCH (10:20)
[2017-04-20] MEDS: POTASSIUM CHLORIDE 10 MEQ TABLET.SA PO SCH (10:20)
[2017-04-20] MEDS: BENAZEPRIL HCL 10 MG TABLET PO SCH ×2 (10:21→18:37)
[2017-04-20] MEDS: MULTIVITAMINS,THERAGRAN 1 UDTAB TABLET PO SCH (10:21)
[2017-04-20] MEDS: OLANZAPINE 2.5 MG TABLET PO SCH ×2 (10:22→13:05)
[2017-04-20] MEDS: DOCUSATE SODIUM 100 MG CAPSULE PO SCH (10:22)
[2017-04-20] MEDS: CARVEDILOL 6.25 MG TABLET PO SCH ×2 (10:22→18:38)
[2017-04-20] MEDS: CALCIUM CARB 600MG /VIT D 1 EACH TABLET PO SCH (10:23)
[2017-04-20] MEDS: DIVALPROEX SODIUM 125 MG CAP.SPRINK PO SCH ×2 (10:23→18:37)
[2017-04-20] MEDS: FUROSEMIDE 40 MG TABLET PO SCH (10:23)
[2017-04-20] MEDS: BOOST PLUS FOOD-CHOCLATE 237 ML BOX PO SCH ×2 (10:24→18:39)
[2017-04-20] MEDS: NEOMY SULF/BACITRAC ZN/POLY 15 GM TUBE TP SCH (10:24)
[2017-04-20] MEDS: Z GUARD REMEDY 2 OZ OINT TP SCH (10:24)
[2017-04-20 16:00] VITALS: BP 100/60
[2017-04-20] MEDS: OLANZAPINE 5 MG TABLET PO SCH (18:39)
--- NOTE | 2017-04-20 19:54 | NUR ---
GPS/RN NOTE: PATIENT AWAKE, ALERT, INITIATES CONVERSATION, TALKS TO HERSELF. GIVEN APPLE JUICE PER HER REQUEST. NO APPARENT DISTRESS NOTED.
--- NOTE | 2017-04-20 19:56 | NUR ---
GPS/RN NOTE: PATIENT AWAKE, ALERT, NO ACUTE DISTRESS NOTED. FAMILY VISITS AT THE BEDSIDE. NO COMPLAINTS MADE AT THIS TIME.
[2017-04-20 20:13] VITALS: BP 132/64
[2017-04-20] MEDS: ATORVASTATIN 10 MG TABLET PO SCH (21:37)
--- NOTE | 2017-04-20 21:38 | NUR ---
GPS/RN NOTE: PATIENT REFUSED HER LIPITOR 20 MG TAB. UNABLE TO UNDERSTAND AND FLOOW INSTRUCTIONS.
[2017-04-21 08:00] VITALS: BP 135/66
[2017-04-21] MEDS: BOOST PLUS FOOD-CHOCLATE 237 ML BOX PO SCH ×2 (08:39→17:53)
[2017-04-21] MEDS: CALCIUM CARB 600MG /VIT D 1 EACH TABLET PO SCH (08:41)
[2017-04-21] MEDS: DOCUSATE SODIUM 100 MG CAPSULE PO SCH (08:41)
[2017-04-21] MEDS: FLUTICASONE/VILANTEROL 1 EACH BLST.W.DEV IH SCH (08:41)
[2017-04-21] MEDS: CARVEDILOL 6.25 MG TABLET PO SCH ×2 (08:41→17:00)
[2017-04-21] MEDS: BENAZEPRIL HCL 10 MG TABLET PO SCH ×2 (08:42→17:00)
[2017-04-21] MEDS: DIVALPROEX SODIUM 125 MG CAP.SPRINK PO SCH ×3 (08:42→17:54)
[2017-04-21] MEDS: FUROSEMIDE 40 MG TABLET PO SCH (08:42)
[2017-04-21] MEDS: POTASSIUM CHLORIDE 10 MEQ TABLET.SA PO SCH (08:42)
[2017-04-21] MEDS: OLANZAPINE 2.5 MG TABLET PO SCH ×2 (08:43→13:00)
[2017-04-21] MEDS: MULTIVITAMINS,THERAGRAN 1 UDTAB TABLET PO SCH (08:43)
[2017-04-21] MEDS: NEOMY SULF/BACITRAC ZN/POLY 15 GM TUBE TP SCH (08:43)
[2017-04-21] MEDS: OLANZAPINE 10 MG VIAL IM PRN ×2 (08:44→14:06)
[2017-04-21] MEDS: Z GUARD REMEDY 2 OZ OINT TP SCH (08:44)
--- NOTE | 2017-04-21 08:44 | NUR ---
gps rn notes received patient in the room, a/o x1/2 confused, paranoid, irritable no respiratory distress, patient refused scheduled medication as prescribed, patient state "I do not need medication, you are evil person". administered zyprexa 2.5 mg/ml im right outer gluteal area per refusal po zyprexa 2.5 mg, v/s taken bp-135/66, p-71, continued monitoring.
--- NOTE | 2017-04-21 14:06 | NUR ---
GPS RN NOTES PATIENT REFUSED 1300 SCHEDULED MEDICATION ZYPREXA 2.5 MG PO, ADMINISTERED ZYPREXA 2.5 MG/ML IM LEFT OUTER GLUTEAL AREA PER REFUSAL OF ZYPREXA, V/S TAKEN, STALE BP-138/67, P-70, CONTINUED MONITORING.
[2017-04-21 16:00] VITALS: BP 129/69
[2017-04-21] MEDS ORDERED: HALOPERIDOL LACTATE INJ 5 MG/ML VIAL IM PRN (17:30)
[2017-04-21] MEDS: HALOPERIDOL 5 MG TABLET PO SCH (17:54)
[2017-04-21 20:23] VITALS: BP 122/58
[2017-04-21] MEDS: ATORVASTATIN 10 MG TABLET PO SCH (21:15)
--- NOTE | 2017-04-21 21:44 | NUR ---
Pt refused her scheduled HS meds.offered 3x .Turned and repositioned q2 hours and as needed.
--- NOTE | 2017-04-22 06:25 | NUR ---
PATIENT IS AWAKE,NO S/S OF ACUTE DISTRESS NOTED,NO SKIN INFECTION NOTED.CLEANSED SACRAL AREA WITH SOAP AND WATER,PAT DRY AND APPLIED REMEDY Z GUARD.
[2017-04-22 08:00] VITALS: BP 118/72
[2017-04-22] MEDS: BOOST PLUS FOOD-CHOCLATE 237 ML BOX PO SCH ×2 (08:00→17:00)
[2017-04-22] MEDS: Z GUARD REMEDY 2 OZ OINT TP SCH (09:00)
[2017-04-22] MEDS: NEOMY SULF/BACITRAC ZN/POLY 15 GM TUBE TP SCH (09:00)
[2017-04-22] MEDS: DIVALPROEX SODIUM 125 MG CAP.SPRINK PO SCH ×3 (09:00→16:59)
[2017-04-22] MEDS: DOCUSATE SODIUM 100 MG CAPSULE PO SCH (09:00)
[2017-04-22] MEDS: CALCIUM CARB 600MG /VIT D 1 EACH TABLET PO SCH (09:00)
[2017-04-22] MEDS: FUROSEMIDE 40 MG TABLET PO SCH (09:00)
[2017-04-22] MEDS: MULTIVITAMINS,THERAGRAN 1 UDTAB TABLET PO SCH (09:00)
[2017-04-22] MEDS: POTASSIUM CHLORIDE 10 MEQ TABLET.SA PO SCH (09:00)
[2017-04-22] MEDS: CARVEDILOL 6.25 MG TABLET PO SCH ×2 (09:00→16:59)
[2017-04-22] MEDS: BENAZEPRIL HCL 10 MG TABLET PO SCH ×2 (09:00→17:00)
[2017-04-22] MEDS: FLUTICASONE/VILANTEROL 1 EACH BLST.W.DEV IH SCH (09:00)
[2017-04-22] MEDS: HALOPERIDOL 5 MG TABLET PO SCH ×2 (10:15→16:57)
--- NOTE | 2017-04-22 10:30 | NUR ---
GPS RN: PATIENT TOOK HALDOL 3MG PO. REFUSED ALL OTHER MEDS, STATING LOUDLY "NO MORE MEDS TODAY UNTIL I SEE MY DOCTOR!". ATTEMPTED X3, PATIENT GETS AGITATED. VS STABLE, CONTINUE TO MONITOR THE PATIENT.
[2017-04-22] MEDS ORDERED: HALOPERIDOL DECANOATE IM 100 MG/ML AMPUL IM ONE (15:30)
[2017-04-22 16:00] VITALS: BP 120/77
[2017-04-22 20:00] VITALS: BP 134/69
[2017-04-22] MEDS: ATORVASTATIN 10 MG TABLET PO SCH (23:51)
[2017-04-23 08:00] VITALS: BP 130/71
[2017-04-23] MEDS: BOOST PLUS FOOD-CHOCLATE 237 ML BOX PO SCH ×2 (08:31→17:25)
[2017-04-23] MEDS: DIVALPROEX SODIUM 125 MG CAP.SPRINK PO SCH ×3 (09:00→17:00)
[2017-04-23] MEDS: CARVEDILOL 6.25 MG TABLET PO SCH ×2 (09:00→17:00)
[2017-04-23] MEDS: BENAZEPRIL HCL 10 MG TABLET PO SCH ×2 (09:00→17:00)
[2017-04-23] MEDS: MULTIVITAMINS,THERAGRAN 1 UDTAB TABLET PO SCH (09:00)
[2017-04-23] MEDS: DOCUSATE SODIUM 100 MG CAPSULE PO SCH (09:00)
[2017-04-23] MEDS: FUROSEMIDE 40 MG TABLET PO SCH (09:00)
[2017-04-23] MEDS: POTASSIUM CHLORIDE 10 MEQ TABLET.SA PO SCH (09:00)
[2017-04-23] MEDS: FLUTICASONE/VILANTEROL 1 EACH BLST.W.DEV IH SCH (09:00)
[2017-04-23] MEDS: CALCIUM CARB 600MG /VIT D 1 EACH TABLET PO SCH (09:00)
[2017-04-23] MEDS: HALOPERIDOL 5 MG TABLET PO SCH ×2 (09:00→17:00)
[2017-04-23] MEDS: NEOMY SULF/BACITRAC ZN/POLY 15 GM TUBE TP SCH (10:08)
[2017-04-23] MEDS: Z GUARD REMEDY 2 OZ OINT TP SCH (10:08)
[2017-04-23 16:00] VITALS: BP 132/71
[2017-04-23 20:00] VITALS: BP 141/89
[2017-04-23] MEDS: ATORVASTATIN 10 MG TABLET PO SCH (21:30)
--- NOTE | 2017-04-23 21:30 | NUR ---
GPS/RN NOTE: PATIENT REFUSED TO TAKE HER NIGHT MEDICATION LIPITOR, OFFERED 2X, STILL REFUSED. PQATIENT STATED, " NO MEDICINE"
[2017-04-24 08:00] VITALS: BP 121/69
[2017-04-24] MEDS: BOOST PLUS FOOD-CHOCLATE 237 ML BOX PO SCH ×2 (08:00→16:58)
[2017-04-24] MEDS: HALOPERIDOL 5 MG TABLET PO SCH ×2 (08:12→16:58)
[2017-04-24] MEDS: CALCIUM CARB 600MG /VIT D 1 EACH TABLET PO SCH (08:52)
[2017-04-24] MEDS: CARVEDILOL 6.25 MG TABLET PO SCH ×2 (08:52→16:58)
[2017-04-24] MEDS: DOCUSATE SODIUM 100 MG CAPSULE PO SCH (08:52)
[2017-04-24] MEDS: FLUTICASONE/VILANTEROL 1 EACH BLST.W.DEV IH SCH (08:52)
[2017-04-24] MEDS: BENAZEPRIL HCL 10 MG TABLET PO SCH ×2 (08:53→16:59)
[2017-04-24] MEDS: POTASSIUM CHLORIDE 10 MEQ TABLET.SA PO SCH (08:53)
[2017-04-24] MEDS: FUROSEMIDE 40 MG TABLET PO SCH (08:53)
[2017-04-24] MEDS: DIVALPROEX SODIUM 125 MG CAP.SPRINK PO SCH ×3 (08:53→16:58)
[2017-04-24] MEDS: MULTIVITAMINS,THERAGRAN 1 UDTAB TABLET PO SCH (08:53)
[2017-04-24] MEDS: NEOMY SULF/BACITRAC ZN/POLY 15 GM TUBE TP SCH (08:53)
--- NOTE | 2017-04-24 08:54 | NUR ---
GPS RN: PATIENT ONLY TOOK HALDOL PO, ASKED TO PUT IT IN THE APPLE SAUCE. REFUSED ALL OTHER MORNING MEDICATIONS, STATING "NO MORE MEDS!" ATTEMPTED THREE TIMES, PATIENT CONTINUES TO REFUSE. PATIENT IS IN NO DISTRESS, RESPIRATION EVEN AND UNLABORED, VS STABLE, CONTINUE TO MONITOR THE PATIENT.
[2017-04-24] MEDS: Z GUARD REMEDY 2 OZ OINT TP SCH (09:42)
--- NOTE | 2017-04-24 12:42 | NUR ---
GPS RN: PATIENT REFUSED 1300 DEPAKOTE, ATTEMPTED X3, EXPLAINED THE IMPORTANCE AND THE PURPOSE OF THE MEDICATION. PATIENT STILL REFUSED, STATING "NO, MY DOCTOR SAID NO!" UNABLE TO REDIRECT THE PATIENT AT THIS TIME. WILL CONTINUE TO MONITOR.
[2017-04-24 16:13] VITALS: BP 98/58
[2017-04-24 20:00] VITALS: BP 126/82
--- NOTE | 2017-04-24 20:19 | NUR ---
GPS/RN NOTE: PATIENT IS LYING IN BED, CALM AND QUIET, NO APPARENT DISTRESS NOTED.
[2017-04-24] MEDS: ATORVASTATIN 10 MG TABLET PO SCH (22:00)
[2017-04-25 08:00] VITALS: BP 136/77
[2017-04-25] MEDS: POTASSIUM CHLORIDE 10 MEQ TABLET.SA PO SCH (09:00)
[2017-04-25] MEDS: DIVALPROEX SODIUM 125 MG CAP.SPRINK PO SCH ×3 (09:00→17:00)
[2017-04-25] MEDS: MULTIVITAMINS,THERAGRAN 1 UDTAB TABLET PO SCH (09:00)
[2017-04-25] MEDS: CARVEDILOL 6.25 MG TABLET PO SCH ×2 (09:00→17:00)
[2017-04-25] MEDS: HALOPERIDOL 5 MG TABLET PO SCH ×2 (09:00→17:00)
[2017-04-25] MEDS: BENAZEPRIL HCL 10 MG TABLET PO SCH ×2 (09:00→17:00)
[2017-04-25] MEDS: FUROSEMIDE 40 MG TABLET PO SCH (09:00)
[2017-04-25] MEDS: FLUTICASONE/VILANTEROL 1 EACH BLST.W.DEV IH SCH (09:00)
[2017-04-25] MEDS: CALCIUM CARB 600MG /VIT D 1 EACH TABLET PO SCH (09:00)
[2017-04-25] MEDS: DOCUSATE SODIUM 100 MG CAPSULE PO SCH (09:00)
[2017-04-25] MEDS: BOOST PLUS FOOD-CHOCLATE 237 ML BOX PO SCH ×2 (09:05→18:09)
[2017-04-25] MEDS: NEOMY SULF/BACITRAC ZN/POLY 15 GM TUBE TP SCH (09:46)
[2017-04-25] MEDS: Z GUARD REMEDY 2 OZ OINT TP SCH (09:47)
--- NOTE | 2017-04-25 13:00 | NUR ---
gps rn notes/ patient a/o x2, delusional, disorganized thoughts, paranoid, refused medication 0900, and 1300, offered medication x3, explained important of taking medication, but patient refused. patient state "My doctor tell me i do not need medication". psychiatrist , and train starter aware of, continued monitoring, assist patient turn and reposition q 2 hr, needs attended and anticipated.
[2017-04-25 16:00] VITALS: BP 113/67
[2017-04-25 19:41] VITALS: BP 143/75
--- NOTE | 2017-04-25 19:43 | NUR ---
GPS/RN NOTE: RECEIVED PATIENT LYING IN BED, EYES CLOSED, RESPONDS WHEN ENGAGED, SLEEPY, RESTING, COMFORTABLE, NO APPARENT DISTRESS NOTED.
--- NOTE | 2017-04-25 21:06 | NUR ---
GPS/RN NOTE: PATIENT REFUSED SKIN ASSESSMENT AND PHOTO TAKEN.
[2017-04-25] MEDS: ATORVASTATIN 10 MG TABLET PO SCH (21:35)
--- NOTE | 2017-04-25 21:35 | NUR ---
GPS/RN NOTE: PATIENT REFUSED HER MEDICATION LIPITOR TONIGHT, OFFERED AND EXPLAINED BENEFITS X3, PATIENT STILL REFUSED, STATED " MY DOCTOR SAID NO."
--- NOTE | 2017-04-26 05:45 | NUR ---
GPS/RN NOTE: PATIENT REFUSED SKIN ASSESSMENT AND PHOTO TAKEN, STATED, "NO, I AM A CHILD OF GOD."
[2017-04-26 08:00] VITALS: BP 134/64
[2017-04-26] MEDS: FLUTICASONE/VILANTEROL 1 EACH BLST.W.DEV IH SCH (09:00)
[2017-04-26] MEDS: MULTIVITAMINS,THERAGRAN 1 UDTAB TABLET PO SCH (09:00)
[2017-04-26] MEDS: Z GUARD REMEDY 2 OZ OINT TP SCH (09:37)
[2017-04-26] MEDS: NEOMY SULF/BACITRAC ZN/POLY 15 GM TUBE TP SCH (09:37)
[2017-04-26] MEDS: POTASSIUM CHLORIDE 10 MEQ TABLET.SA PO SCH (10:42)
[2017-04-26] MEDS: DOCUSATE SODIUM 100 MG CAPSULE PO SCH (10:42)
[2017-04-26] MEDS: BOOST PLUS FOOD-CHOCLATE 237 ML BOX PO SCH ×2 (10:42→17:07)
[2017-04-26] MEDS: CARVEDILOL 6.25 MG TABLET PO SCH ×2 (10:43→17:05)
[2017-04-26] MEDS: FUROSEMIDE 40 MG TABLET PO SCH (10:43)
[2017-04-26] MEDS: CALCIUM CARB 600MG /VIT D 1 EACH TABLET PO SCH (10:43)
[2017-04-26] MEDS: BENAZEPRIL HCL 10 MG TABLET PO SCH ×2 (10:44→17:05)
--- NOTE | 2017-04-26 10:49 | NUR ---
EVITA called [facility] and spoke with Christine from Admissions; [address] [place] [address]; . Christine told EVITA that an inquiry needs to be faxed over before facility makes a decision. EVITA informed Christine that EVITA spoke with Blanca who told SW that facility is legally obligated to take back patient and also told EVITA that no forms were needed to be faxed over. Christine stated that the inquiry is needed at this time. EVITA faxed over the inquiry [face sheet, history and physical, med list, progress note] at fax #[phone]. EVITA will follow up.
--- NOTE | 2017-04-26 13:48 | NUR ---
Christine from Admissions from [facility]; [address] [place] [address]; called EVITA and stated that the DoN is wanting a note from psychiatrist that states patient is not suicidal and is safe for discharge. EVITA stated that she will do her best. EVITA send message to Dr. Estrada asking if that was a possibility. If not, then EVITA will re-fax the latest progress note that states patient is not suicidal/homicidal and is safe for discharge. EVITA will also follow up with [facility] and inform Christine that EVITA will try one other facility, but if it does not work out, then [facility] has to take patient back.
--- NOTE | 2017-04-26 13:51 | NUR ---
EVITA faxed over referral to Ana from [facility], , . EVITA also called and spoke with Constance at [facility] and asked administration to review the referral and give word as soon as they are able. EVITA then called pt's daughter, Lou at [phone] and left a voicemail with contact information asking Lou to call her back.
--- NOTE | 2017-04-26 15:03 | NUR ---
EVITA spoke with pt's daughter, Lou, . Lou stated that she would like her mother to return to the [facility]. EVITA will follow up with [facility].
--- NOTE | 2017-04-26 15:17 | NUR ---
EVITA spoke with Christine from [facility] Admissions who stated that they need a note dictated by the psychiatrist stating that the patient is clear for discharge, has no safety issues, and is not suicidal. EVITA told Christine that she will do her best and that SW looked into one other facility. However, EVITA also stated that patient's family would like to see her back at [facility] and that if that other placement is not secured, then they will have to take her back. EVITA spoke with Dr. Estrada and he stated that he will dictate it and it will be up the next morning. SW will fax it over to the facility when ready.
--- NOTE | 2017-04-26 15:50 | NUR ---
EVITA heard back from Ana from [facility] [phone] who stated that patient was accepted into their facility. EVITA then called pt's daughter, Lou at [phone] and Lou told SW that she wants to see her mom return to [facility]. EVITA notified Ana from [facility] that the placement has to be held back because the family is unsure. EVITA will follow up with [facility] tomorrow once Dr. Estrada dictates that note that was requested by the facility. EVITA will fax over that note and will arrange safe and proper discharge.
[2017-04-26 16:00] VITALS: BP 114/65
[2017-04-26 20:05] VITALS: BP 127/78
[2017-04-26] MEDS: ATORVASTATIN 10 MG TABLET PO SCH (21:19)
[2017-04-27 08:00] VITALS: BP 146/79
[2017-04-27 09:00] VITALS: BP 146/79
[2017-04-27] MEDS: FLUTICASONE/VILANTEROL 1 EACH BLST.W.DEV IH SCH (09:00)
[2017-04-27] MEDS: CALCIUM CARB 600MG /VIT D 1 EACH TABLET PO SCH (09:00)
[2017-04-27] MEDS: MULTIVITAMINS,THERAGRAN 1 UDTAB TABLET PO SCH (09:00)
[2017-04-27] MEDS: BENAZEPRIL HCL 10 MG TABLET PO SCH (09:00)
[2017-04-27] MEDS: CARVEDILOL 6.25 MG TABLET PO SCH (09:00)
[2017-04-27] MEDS: POTASSIUM CHLORIDE 10 MEQ TABLET.SA PO SCH (09:00)
[2017-04-27] MEDS: NEOMY SULF/BACITRAC ZN/POLY 15 GM TUBE TP SCH (09:00)
[2017-04-27] MEDS: DOCUSATE SODIUM 100 MG CAPSULE PO SCH (09:00)
[2017-04-27] MEDS: FUROSEMIDE 40 MG TABLET PO SCH (09:00)
[2017-04-27] MEDS: BOOST PLUS FOOD-CHOCLATE 237 ML BOX PO SCH (09:06)
--- NOTE | 2017-04-27 09:07 | NUR ---
EVITA called pt's daughter Lou, and left a detailed voicemail stating that [facility] is being resistant and perhaps [facility] would be a better option. EVITA stated that the pt can go to [facility] and then transfer to [facility] should the family decide. EVITA asked daughter to call her back as soon as possible.
[2017-04-27] MEDS: Z GUARD REMEDY 2 OZ OINT TP SCH (09:09)
--- NOTE | 2017-04-27 09:19 | NUR ---
Pt's daughter Lou, called back and stated that [facility] is the very, very last option. Daughter stated that she wants her mother back at [facility] and is not open to [facility]. SW stated that she will do her best, but cannot make promises.
--- NOTE | 2017-04-27 09:51 | NUR ---
EVITA spoke with Rubio the director of [facility], . EVITA stated that the patient has to be discharged today and that [facility] promised to take the patient back. EVITA stated that she spoke with her bus driver supervisor and that this is something that could be reportable. Rubio stated that he will take a look at the progress note. EVITA faxed over a second copy of the progress note to Fax #[phone]. EVITA called and asked secretary administrative assistant to confirm the switchboard operator receptionist of the fax. EVITA will follow up.
--- NOTE | 2017-04-27 10:04 | NUR ---
EVITA spoke with Neida at [facility] and arranged ambulance transport for Elizabeth Pearl to the [facility]. The trip they had available was at 3:30pm[place] [id number]. Cancelation policy is approximately 15 minutes prior to greens picker time.
--- NOTE | 2017-04-27 10:30 | NUR ---
EVITA spoke with Christine from admissions at [facility], . Christine stated that the director, Rubio, gave her the progress note that was faxed this morning by the Mall Plant Caretaker. Christine stated that she is going to consult with her DoN in a few minutes and will call EVITA back.
--- NOTE | 2017-04-27 11:28 | NUR ---
EVITA called Christine from admissions and Christine informed EVITA that patient has been accepted back to the facility. Christine also provided the names of the pt's medical and psychiatry doctors, which are indicated in the discharge note.
--- NOTE | 2017-04-27 11:36 | NUR ---
Discharge Note Patient will be discharged to [facility] [address] [place] [id number]; via ambulance at 3:30pm. The transportation was arranged by social media content specialist via [employer]o. The trip number is #[id number]. Patients daughter, Lou [phone] has been notified and approves of the discharge plan. Daughter will visit patient at [facility] in the late evening. Once at the facility, patient will follow up with her franchise manager, Dr. Jonn Howard [address] [place] [address], on 04/28/17. Patient will also follow up with her psychiatrist, Dr. Brenda Lovett [address] [place] [address] [phone] on 04/28/17 at 10am. Patient is not a smoker and has no need for substance/alcohol use referrals.
--- NOTE | 2017-04-27 15:55 | NUR ---
DISCHARGE NOTES PATIENT D/C AT THIS TIME GOING SNF. PATIENT TOTAL CARE, MEDICALLY STABLE TO D/C, NO C/O PAIN, V/S STABLE. PATIENT DENIED SI/HI/AVH AT THIS TIME OF DISCHARGE. NO RESPIRATORY DISTRESS. MED RECONCILIATION AND DISCHARGE ORDER REVIEWED AND EXPLAINED TO. PICTURE TAKEN, REPORT GIVEN SNF RN. RN VERBALIZED UNDERSTANDING,. BELONGING RETURNED BACK TO THE PATIENT. PATIENT SUPERVISOR RUBBER COVERING BY AMBULANCE. PATIENT DAUGHTER GUANAKITO AWARE OF PHONE # [phone]. PSYCHIATRIST DR FAUSTO METZ PHONE# [phone], AND LEARNING COACH DR. HANNAH GORE PHONE # [phone] WILL FOLLOW PATIENT IN THE FACILITY.
== END 2017-04-27 15:55 | DRG 885 ==
LOC: GPS 01:00
PROVIDERS: ADMIT Psychiatry & Neurology Psychiatry; ATTEND Nurse Practitioner Acute Care
DX: F31.64 Bipolar disorder, current episode mixed, severe, with psychotic features (principal); I11.0 Hypertensive heart disease with heart failure; F03.90 Unspecified dementia, unspecified severity, without behavioral disturbance, psychotic disturbance, mood disturbance, and anxiety; I50.9 Heart failure, unspecified; E44.1 Mild protein-calorie malnutrition; F23 Brief psychotic disorder; J44.9 Chronic obstructive pulmonary disease, unspecified; E78.5 Hyperlipidemia, unspecified; I70.0 Atherosclerosis of aorta; Z79.899 Other long term (current) drug therapy; Z85.118 Personal history of other malignant neoplasm of bronchus and lung; Z95.0 Presence of cardiac pacemaker; E88.09 Other disorders of plasma-protein metabolism, not elsewhere classified; Z68.24 Body mass index [BMI] 24.0-24.9, adult; L98.9 Disorder of the skin and subcutaneous tissue, unspecified; L53.8 Other specified erythematous conditions; S50.11XA Contusion of right forearm, initial encounter; S60.221A Contusion of right hand, initial encounter; X58.XXXA Exposure to other specified factors, initial encounter; Y93.9 Activity, unspecified; Y92.89 Other specified places as the place of occurrence of the external cause; Y99.9 Unspecified external cause status; L89.621 Pressure ulcer of left heel, stage 1; L89.611 Pressure ulcer of right heel, stage 1; S81.811A Laceration without foreign body, right lower leg, initial encounter; S21.209A Unspecified open wound of unspecified back wall of thorax without penetration into thoracic cavity, initial encounter; R91.8 Other nonspecific abnormal finding of lung field; R59.0 Localized enlarged lymph nodes
CPT/HCPCS: 36415; 71010-TC; 80053-TC; 80061-TC; 80164-TC; 87081-TC; A6402; J1630; J1631; J3490